=== PATIENT | male | born 1940 | race Caucasian/White ===

== ENCOUNTER 2019-04-19 17:47 | Emergency (ER) | payer MEDICARE, SELFPAY ==
[2019-04-19] VITALS (21 sets, daily range): BP systolic 141–163; BP diastolic 57–70; PULSE 56–67; RESP 14–31; TEMP 36.6–36.7; O2SAT 95–100
[2019-04-19 18:14] LABS: Abs Immature Grans 0.02 k/cumm (0.0-0.09); Absolute Basophil Count 0.03 k/cumm (0.0-0.2); Absolute Eosinophil Count 0.22 k/cumm (0.0-0.7); Absolute Lymphocyte Count 1.06 k/cumm (1.2-3.4); Absolute Monocyte Count 0.67 k/cumm (0.11-0.7); Absolute Neutrophil Count 6.75 k/cumm (1.2-6.7); Basophils % 0.3; Eosinophils % 2.5; HGB 11.2 g/dL (13.5-17.5); Immature Grans % 0.2; Lymphocytes % 12.1; Mean Corp. HGB Concentration 33.9 g/dL (32.0-36.0); Mean Corpuscular Hemoglobin 30.9 pg (27.0-33.0); Mean Corpuscular Volume 91.2 fL (80-95); Mean Platelet Volume 9.4 fL (8.0-11.0); Monocytes % 7.7; Neutrophils % 77.2; Platelet Count 154 x1000/uL (130-400); RBC 3.62 m/cumm (4.50-6.00); RBC Distribution Width 12.9 % (11.8-14.1); White Blood Cell Count 8.75 k/cumm (4.4-10.8)
[2019-04-19 18:28] LABS: PTT Activated 22.7 sec (21.0-31.4); Prothrombin Time 9.5 sec (9.3-11.0)
--- NOTE | 2019-04-19 18:29 | W.ED.GENAD ---
Discharge Plan Disposition Patient Disposition: HOME Condition: Stable Discharge Details Chief Complaint: Dizzy/Sync Clinical Impression: Near syncope, Dizziness, Atypical chest pain Primary Care Provider: Yolanda Mattson ED Provider: Ewa Kim Home Meds and New Rx's Prescriptions: No Action furosemide 40 MG tablet 40 mg PO DAILY RF: 0 metoprolol tartrate 100 MG tablet 100 mg PO BID RF: 0 aspirin [Aspir-Low] 81 MG tablet,delayed release (DR/EC) 81 mg PO DAILY RF: 0 doxazosin 8 MG tablet 8 mg PO .QHS RF: 0 pravastatin 10 MG tablet 40 mg PO DAILY RF: 0 losartan 100 MG tablet 100 mg PO DAILY RF: 0 Discharge Instructions Instructions: Chest Pain (ED), Syncope (ED), Dizziness (ED) Additional Instructions: Your lab work showed no evidence of a heart attack. This could have been from dehydration or orthostasis so please be sure you are staying hydrated. Call your primary care doctor on Sunday morning to schedule a follow-up appointment for reevaluation. If you have worsening chest pain, difficulty breathing or feel more ill, return immediately to the emergency department. Discharge Data Discharge Date/Time-TO BE ENTERED AT DEPARTURE: 04/19/19 22:39 Discharge Physician: Ewa Kim Medical Decision Making <Peter Erwin MD - Last Filed: 04/19/19 19:17> 79 yo male with hx of cad s/p cabg in the past, htn, hld comes in after syncope. He states he stood up from sitting to use the restroom, felt lightheaded and lost consciousness briefly, no reported seizure like activity. He had mild chest pain when he woke up that resolved in a few minutes. He now has no symptoms and denies current chest pain, sob, abd pain, n/v. He has no focal neuro deficits. His symptoms seem most consistent with orthostasis given prodrome and happened going from sitting to standing. His ekg is unremarkable, will send troponin and also eval for anemia and electrolyte abnormalities. He has no deficits on exam to suggest cva. He has no evidence of dvt, hypoxia or tachycardia so doubt PE pt remains stable and no symptoms. Labs show mild anemia and does have elevated bun/creatine. No old cbc's to compare to in our system, apparently gets labs done at [facility], they had no cbc's on record but bmp from january of this year showed creatinine of 2.1 so seems to be stable ckd. We had a long discussion about admission for observation but pt declined this as he feels well and his story does seem most consistent with orthostasis and he has capacity to make his own decisions. He is willing to wait to have repeat troponin and will repeat cbc and bmp as well. pt will be signed out to oncoming provider pending repeat lab work Differential Diagnosis orthostasis, arrythmia, acs Lab Data Lab results reviewed: Yes I reviewed the patient's lab results. ECG Data Attestation: I personally reviewed and interpreted this ECG (s) as follows: Prior ECG tracings: not available for review Interpretation: sinus rhythm, rate of 67, r 204, qtc 452, no acute st t wave ischemic findings <Ewa Kim DO - Last Filed: 04/20/19 05:12> 1999 -- Please see Dr. Erwin's note for initial presentation, exam, and plan. 79yo M w/ a h/o htn, hld, MS, CABG in 2016 who presented with dizziness/near syncopal episode followed by brief episode of chest pressure upon standing up quickly to walk to the bathom today. He has had no further episodes of chest pain. He denies any acute complaints at this time. He feels much better after fluids here. He is noted to have stable CKD compared to Creatinine from [facility] in January. His troponin is negative and EKG unremarkable. Case endorsed to f/u on repeat troponin, hgb, creatinine after ivf and repeat EKG. Pt was offered admission per Dr. Erwin and declined. He is still declining admission and would rather go home. 2209 -- Repeat EKG unchanged and unremarkable. Repeat labs reviewed and unremarkable. Hemoglobin stable at 11.2. Creatinine stable and more improved back to baseline at 2.06. Troponin negative. Patient feels much better and has no acute complaints and is requesting to go home. He again was offered admission but declines. 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 Schwartz within the next week. He is advised to call his primary care doctor on Sunday morning to a schedule follow-up appointment for reevaluation and to return here at any time if worse. Medical Records Medical records reviewed: Yes I reviewed the patient's medical records. Imaging Data Radiologic Study: Radiologist's impression: XR Chest, 1 View EXAM DATE/TIME: 04/19/2019 9:12 PM CLINICAL HISTORY: 79 years old, male; Left-sided chest pain; Patient HX: L-sided chest pain; Additional info: R/O acute disease TECHNIQUE: Imaging protocol: XR of the chest, 1 view. COMPARISON: CR CHEST 2 VIEWS PA,LAT 21/11/2017 09:35 FINDINGS: Lungs: Mild prominence of the central pulmonary vasculature similar to prior study. Pleural space: Unremarkable. No pleural effusion. No pneumothorax. Heart/Mediastinum: Heart stable in size. Bones/joints: Sternotomy wires and mediastinal clips are in place. Postsurgical changes of the right distal clavicle. IMPRESSION: No acute cardiopulmonary disease. Lab Data Lab results reviewed: Yes I reviewed the patient's lab results. Laboratory Tests Range/Units 04/19/19 04/19/19 04/19/19 18:00 18:00 18:00 WBC (4.4-10.8) k/cumm 8.75 RBC (4.50-6.00) m/cumm 3.62 L Hgb (13.5-17.5) g/dL 11.2 L Hct (40.0-50.0) % 33.0 L MCV (80-95) fL 91.2 MCH (27.0-33.0) pg 30.9 MCHC (32.0-36.0) g/dL 33.9 RDW (11.8-14.1) % 12.9 Plt Count (130-400) x1000/uL 154 MPV (8.0-11.0) fL 9.4 Immature Gran % 0.2 Neutrophils % 77.2 Lymphocytes % 12.1 Monocytes % 7.7 Eosinophils % 2.5 Basophils % 0.3 Absolute Neutrophils (1.2-6.7) k/cumm 6.75 H Absolute Lymphocytes (1.2-3.4) k/cumm 1.06 L Absolute Monocytes (0.11-0.7) k/cumm 0.67 Absolute Eosinophils (0.0-0.7) k/cumm 0.22 Absolute Basophils (0.0-0.2) k/cumm 0.03 PT (9.3-11.0) sec 9.5 INR (0.9-1.1) 1.0 APTT (21.0-31.4) sec 22.7 Sodium (136-145) mmol/L 142 Potassium (3.5-5.1) mmol/L 4.0 Chloride (98-107) mmol/L 104 Carbon Dioxide (21.0-32.0) mmol/L 25.1 Anion Gap (3-11) mmol/L 12.9 H BUN (7-18) mg/dL 39 H Creatinine (0.70-1.30) mg/dL 2.43 H Estimated GFR/1.73 m2 (mL/min/1.73m2) 25.81 Glucose (70-100) mg/dL 95 Calcium (8.5-10.1) mg/dL 8.8 Magnesium (1.8-2.4) mg/dL 2.2 Total Bilirubin (0.2-1.0) mg/dL 0.8 AST (15-37) U/L 11 L ALT (12-78) U/L 17 Alkaline Phosphatase (46-116) U/L 42 L Troponin I (0.00-0.06) ng/mL < 0.05 NT-Pro-B Natriuret Pep ( - 299) pg/mL Total Protein (6.4-8.2) g/dL 7.3 Albumin (3.4-5.0) g/dL 3.7 Range/Units 04/19/19 04/19/19 04/19/19 18:00 21:00 21:00 WBC (4.4-10.8) k/cumm 8.51 RBC (4.50-6.00) m/cumm 3.64 L Hgb (13.5-17.5) g/dL 11.2 L Hct (40.0-50.0) % 33.1 L MCV (80-95) fL 90.9 MCH (27.0-33.0) pg 30.8 MCHC (32.0-36.0) g/dL 33.8 RDW (11.8-14.1) % 12.9 Plt Count (130-400) x1000/uL 155 MPV (8.0-11.0) fL 9.6 Immature Gran % Neutrophils % Lymphocytes % Monocytes % Eosinophils % Basophils % Absolute Neutrophils (1.2-6.7) k/cumm Absolute Lymphocytes (1.2-3.4) k/cumm Absolute Monocytes (0.11-0.7) k/cumm Absolute Eosinophils (0.0-0.7) k/cumm Absolute Basophils (0.0-0.2) k/cumm PT (9.3-11.0) sec INR (0.9-1.1) APTT (21.0-31.4) sec Sodium (136-145) mmol/L 141 Potassium (3.5-5.1) mmol/L 4.2 Chloride (98-107) mmol/L 108 H Carbon Dioxide (21.0-32.0) mmol/L 21.5 Anion Gap (3-11) mmol/L 11.5 H BUN (7-18) mg/dL 38 H Creatinine (0.70-1.30) mg/dL 2.06 H Estimated GFR/1.73 m2 (mL/min/1.73m2) 31.23 Glucose (70-100) mg/dL 106 H Calcium (8.5-10.1) mg/dL 8.0 L Magnesium (1.8-2.4) mg/dL Total Bilirubin (0.2-1.0) mg/dL AST (15-37) U/L ALT (12-78) U/L Alkaline Phosphatase (46-116) U/L Troponin I (0.00-0.06) ng/mL NT-Pro-B Natriuret Pep ( - 299) pg/mL 744 H Total Protein (6.4-8.2) g/dL Albumin (3.4-5.0) g/dL Range/Units 04/19/19 21:00 WBC (4.4-10.8) k/cumm RBC (4.50-6.00) m/cumm Hgb (13.5-17.5) g/dL Hct (40.0-50.0) % MCV (80-95) fL MCH (27.0-33.0) pg MCHC (32.0-36.0) g/dL RDW (11.8-14.1) % Plt Count (130-400) x1000/uL MPV (8.0-11.0) fL Immature Gran % Neutrophils % Lymphocytes % Monocytes % Eosinophils % Basophils % Absolute Neutrophils (1.2-6.7) k/cumm Absolute Lymphocytes (1.2-3.4) k/cumm Absolute Monocytes (0.11-0.7) k/cumm Absolute Eosinophils (0.0-0.7) k/cumm Absolute Basophils (0.0-0.2) k/cumm PT (9.3-11.0) sec INR (0.9-1.1) APTT (21.0-31.4) sec Sodium (136-145) mmol/L Potassium (3.5-5.1) mmol/L Chloride (98-107) mmol/L Carbon Dioxide (21.0-32.0) mmol/L Anion Gap (3-11) mmol/L BUN (7-18) mg/dL Creatinine (0.70-1.30) mg/dL Estimated GFR/1.73 m2 (mL/min/1.73m2) Glucose (70-100) mg/dL Calcium (8.5-10.1) mg/dL Magnesium (1.8-2.4) mg/dL Total Bilirubin (0.2-1.0) mg/dL AST (15-37) U/L ALT (12-78) U/L Alkaline Phosphatase (46-116) U/L Troponin I (0.00-0.06) ng/mL < 0.05 NT-Pro-B Natriuret Pep ( - 299) pg/mL Total Protein (6.4-8.2) g/dL Albumin (3.4-5.0) g/dL ECG Data Attestation: I personally reviewed and interpreted this ECG (s) as follows: Interpretation: #1 -- rate of 67, sinus, TWI in lead aVL, no acute ST elevation or depression, QTc 452, QRS 96. #2 -- rate of 62, sinus, TWI in lead aVL, no acute ST elevation or depression, QTc 439, QRS 94. HPI <Peter Erwin MD - Last Filed: 04/19/19 19:17> General Mode of arrival: EMS. Date/Time Provider Initiated Documentation: 04/19/19 17:59. Limitations to Documentation: no limitations. Information obtained by: patient. History of Present Illness 79 year old M presents to the emergency department with the chief complaint of syncope, Patient started experiencing this hour(s) (1) and it has been now resolved. No relieving factors improve symptom(s), No exacerbating factors reported . Patient did receive the following treatments prior to arrival, none Related Data Home Medications Medication Instructions Recorded Confirmed aspirin [Aspir-Low] 81 mg PO DAILY 11/21/17 04/19/19 doxazosin 8 mg PO .QHS 11/21/17 04/19/19 furosemide 40 mg PO DAILY 11/21/17 04/19/19 losartan 100 mg PO DAILY 11/21/17 04/19/19 metoprolol tartrate 100 mg PO BID 11/21/17 04/19/19 pravastatin 40 mg PO DAILY 11/21/17 04/19/19 Allergies Allergy/AdvReac Type Severity Reaction Status Date / Time amlodipine Allergy Unknown Unverified 11/21/17 09:10 atorvastatin [From Lipitor] Allergy Unknown Unverified 11/21/17 09:10 lisinopril Allergy Unknown Unverified 11/21/17 09:10 General Stated Complaint: Dizzy/Sync BOY: 2 Review of Systems <Peter Erwin MD - Last Filed: 04/19/19 19:17> Review of Systems All systems reviewed & are unremarkable except as noted in HPI and below Constitutional Denies chills, Denies fever(s) and Denies weakness Cardiovascular Denies dyspnea Respiratory Denies dyspnea Gastrointestinal Denies abdominal pain, Denies nausea and Denies vomiting Neurologic Denies weakness PFSH <Peter Erwin MD - Last Filed: 04/19/19 19:17> Social History Do you feel safe in your relationship?: Yes Exam <Peter Erwin MD - Last Filed: 04/19/19 19:17> Const General: no acute distress Orientation: alert HENPA Head: normal to inspection Ears: external ears normal General nose exam: external nose normal Mouth: moist mucous membranes Eyes General: appearance normal, both eyes and all related structures Neck Neck: normal visual inspection Resp Effort & Inspection: normal respiratory effort and able to speak in complete sentences Cardio Rate: regular rate Skin General skin exam: no rashes or lesions noted Neuro General: alert and oriented x3 Extrem General: normal to inspection Psych Mental Status: mental status grossly normal Course <Peter Erwin MD - Last Filed: 04/19/19 19:17> Vital Signs Temperature 36.7 C 04/19/19 17:51 Pulse 64 04/19/19 17:51 Respiratory Rate 15 04/19/19 17:51 Blood Pressure 149/65 H 04/19/19 17:51 Pulse Oximetry 95 04/19/19 17:51 Temperature 36.7 C 04/19/19 17:51 Temperature Source Temporal Artery Scan 04/19/19 17:51 Pulse 64 04/19/19 17:51 Respiratory Rate 16 04/19/19 18:07 Respiratory Effort 04/19/19 18:07 Respiratory Depth Normal 04/19/19 18:07 Respiratory Pattern Normal 04/19/19 18:07 Blood Pressure 149/65 H 04/19/19 17:51 Blood Pressure Position Supine 04/19/19 17:51 Pulse Oximetry 95 04/19/19 17:51 Oxygen Delivery Method Room Air 04/19/19 17:51 Oxygen Flow Rate 0 04/19/19 17:51 Pain Level 0 04/19/19 17:51 Lab/Test Results Lab/Test Results: Laboratory Tests Range/Units 04/19/19 18:00 WBC (4.4-10.8) k/cumm 8.75 RBC (4.50-6.00) m/cumm 3.62 L Hgb (13.5-17.5) g/dL 11.2 L Hct (40.0-50.0) % 33.0 L MCV (80-95) fL 91.2 MCH (27.0-33.0) pg 30.9 MCHC (32.0-36.0) g/dL 33.9 RDW (11.8-14.1) % 12.9 Plt Count (130-400) x1000/uL 154 MPV (8.0-11.0) fL 9.4 Immature Gran % 0.2 Neutrophils % 77.2 Lymphocytes % 12.1 Monocytes % 7.7 Eosinophils % 2.5 Basophils % 0.3 Absolute Neutrophils (1.2-6.7) k/cumm 6.75 H Absolute Lymphocytes (1.2-3.4) k/cumm 1.06 L Absolute Monocytes (0.11-0.7) k/cumm 0.67 Absolute Eosinophils (0.0-0.7) k/cumm 0.22 Absolute Basophils (0.0-0.2) k/cumm 0.03 Sign Out <Peter Erwin MD - Last Filed: 04/19/19 19:17> Sign Out Data: Sign Out Comment: follow up on delta troponin, cbc and bmp Last updated by Peter Erwin MD at 04/19/19 19:21
[2019-04-19 18:39] LABS: ALT 17 U/L (12-78); AST 11 U/L (15-37); Albumin 3.7 g/dL (3.4-5.0); Alkaline Phosphatase 42 U/L (46-116); Anion Gap 12.9 mmol/L (3-11); BUN 39 mg/dL (7-18); Bilirubin, Total 0.8 mg/dL (0.2-1.0); CO2 25.1 mmol/L (21.0-32.0); CREATININE 2.43 mg/dL (0.70-1.30); Calcium 8.8 mg/dL (8.5-10.1); Chloride 104 mmol/L (98-107); Estimated GFR 25.81 (mL/min/1.73m2); Glucose 95 mg/dL (70-100); Magnesium 2.2 mg/dL (1.8-2.4); Sodium 142 mmol/L (136-145); Total Protein 7.3 g/dL (6.4-8.2)
[2019-04-19 18:40] LABS: Troponin I < 0.05 ng/mL (0.00-0.06)
[2019-04-19 18:58] LABS: NT-proBNP 744 pg/mL
[2019-04-19] MEDS: Normal Saline 1,000 ML 1000 ML IV (19:37)
--- NOTE | 2019-04-19 21:11 | DI.RAD_ITS ---
SYMPTOM/DIAGNOSIS: LT SIDED CHEST PAIN, R/O ACUTE DISEASE CHEST X-RAY: Portable AP view. Comparison 11/21/17 Heart size is within normal limits. There is tortuosity of the thoracic aorta. Sternotomy wires are in place and stable. No focal infiltrates, effusions or pneumothoraces are identified. Stable findings at the right acromioclavicular joint are noted. IMPRESSION: No acute pulmonary process.
[2019-04-19 21:16] LABS: HCT 33.1 % (40.0-50.0); HGB 11.2 g/dL (13.5-17.5); Mean Corp. HGB Concentration 33.8 g/dL (32.0-36.0); Mean Corpuscular Hemoglobin 30.8 pg (27.0-33.0); Mean Corpuscular Volume 90.9 fL (80-95); Mean Platelet Volume 9.6 fL (8.0-11.0); Platelet Count 155 x1000/uL (130-400); RBC 3.64 m/cumm (4.50-6.00); RBC Distribution Width 12.9 % (11.8-14.1); White Blood Cell Count 8.51 k/cumm (4.4-10.8)
[2019-04-19 21:24] LABS: Anion Gap 11.5 mmol/L (3-11); BUN 38 mg/dL (7-18); CO2 21.5 mmol/L (21.0-32.0); CREATININE 2.06 mg/dL (0.70-1.30); Chloride 108 mmol/L (98-107); Estimated GFR 31.23 (mL/min/1.73m2); Glucose 106 mg/dL (70-100); Potassium 4.2 mmol/L (3.5-5.1); Sodium 141 mmol/L (136-145)
[2019-04-19 21:38] LABS: Troponin I < 0.05 ng/mL (0.00-0.06)
--- NOTE | 2019-04-19 21:42 | DI.VRAD_ITS ---
EXAM: XR Chest, 1 View EXAM DATE/TIME: 04/19/2019 9:12 PM CLINICAL HISTORY: 79 years old, male; Left-sided chest pain; Patient HX: L-sided chest pain; Additional info: R/O acute disease TECHNIQUE: Imaging protocol: XR of the chest, 1 view. COMPARISON: CR CHEST 2 VIEWS PA,LAT 21/11/2017 09:35 FINDINGS: Lungs: Mild prominence of the central pulmonary vasculature similar to prior study. Pleural space: Unremarkable. No pleural effusion. No pneumothorax. Heart/Mediastinum: Heart stable in size. Bones/joints: Sternotomy wires and mediastinal clips are in place. Postsurgical changes of the right distal clavicle. IMPRESSION: No acute cardiopulmonary disease. Dictated and Authenticated by: Dariela Munoz MD. Ordering:MELY Mcneil MD
== END 2019-04-19 22:39 | disposition home or self-care (01) ==
PROVIDERS: Emergency Medicine; Emergency Provider Physician Assistant; PCP Family Medicine
DX: R55 Syncope and collapse (principal); R42 Dizziness and giddiness; D64.9 Anemia, unspecified; R07.89 Other chest pain; I12.9 Hypertensive chronic kidney disease with stage 1 through stage 4 chronic kidney disease, or unspecified chronic kidney disease; N18.9 Chronic kidney disease, unspecified; Z95.1 Presence of aortocoronary bypass graft; I25.10 Atherosclerotic heart disease of native coronary artery without angina pectoris
CPT/HCPCS: 36415; 80048; 80053; 85027; 93005; 96360; 99285; 71045; 83735; 83880; 84484; 85025; 85610; 85730; 93010; 99284; J3490